=== PATIENT | male | born 1995 | race Two or more races ===

== ENCOUNTER 2019-05-04 19:13 | Emergency (ER) | payer OTHER ==
[~2019-05-04] VITALS: Ht 162.6 cm; Wt 68.0 kg
== END 2019-05-04 23:03 | disposition home or self-care (01) ==
LOC: ER 19:13
DX: S83.8X1A Sprain of other specified parts of right knee, initial encounter (principal); W01.0XXA Fall on same level from slipping, tripping and stumbling without subsequent striking against object, initial encounter; Y93.61 Activity, american tackle football; Y92.214 College as the place of occurrence of the external cause; Y99.8 Other external cause status